=== PATIENT | male | born 1970 | race African-American/Black ===

== ENCOUNTER 2018-08-02 10:49 | Emergency (ER) | payer MEDICAID, OTHER ==
[~2018-08-02] VITALS: Ht 180.3 cm; Wt 95.5 kg
[2018-08-02 11:24] VITALS: BP 132/71
== END 2018-08-02 13:38 | disposition left against medical advice (07) ==
LOC: ER 11:15
DX: R20.0 Anesthesia of skin (principal); Z53.21 Procedure and treatment not carried out due to patient leaving prior to being seen by health care provider